=== PATIENT | female | born 2000 | race Caucasian/White ===

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

== ENCOUNTER 2021-02-16 01:47 | Emergency (ER) | payer BC ==
[~2021-02-16] VITALS: Ht 162.6 cm; Wt 50.0 kg
[~2021-02-16 01:47] MED LIST changes: +BUSPAR10 MG PO; +CLEOCIN HCL300 MG PO; +EFFEXOR-XR150 MG PO; +ZYPREXA 5MG5 MG PO
[2021-02-16 01:55] VITALS: BP 118/76; TEMP 98.5
[2021-02-16 02:39] LABS: BASO # 0.1 (0.0-0.2); BASO % 0.7 % (0.0-2.0); EOS # 0.1 (0.0-0.7); EOS % 1.1 % (0-4.0); GRAN # 6.2 (1.4-6.5); GRAN % 64.2 % (42.2-75.2); HEMATOCRIT 44.1 % (35.0-45.0); LYMPH # 2.7 (1.2-3.4); LYMPH % 27.8 % (20.0-51.0); MEAN CELL VOLUME 86 fl (80.0-95.0); MEAN CORPUSCULAR HEMOGLOBIN 27 pg (26.0-32.0); MEAN CORPUSCULAR HGB CONC 32 g/dl (33.0-37.0); MEAN PLATELET VOLUME 9.9 fl (7.4-10.4); MONO # 0.6 (0.1-0.6); MONO % 5.9 % (1.7-9.3); PLATELET COUNT 404 K/mm3 (130-400); RED BLOOD COUNT 5.14 M/mm3 (4.10-5.30); REDCELL DISTRIBUTION WIDTH-CV 13.4 % (11.5-14.5)
[2021-02-16 02:49] LABS: ALANINE AMINOTRANSFERASE 12 U/L (4-34); ALBUMIN 4.7 gm/dL (3.5-5.0); ALCOHOL(ethanol),MEDICAL 186 mg/dL; ALKALINE PHOSPHATASE 46 U/L (50-136); ANION GAP 11 mmol/L (7-16); AST,SGOT 23 U/L (15-37); BILIRUBIN,TOTAL 0.5 mg/dL (0.0-1.0); BLOOD UREA NITROGEN 4 mg/dL (7-17); CARBON DIOXIDE 25 mmol/L (22-30); CHLORIDE 106 mmol/L (98-107); CREATININE, serum 0.78 (0.52-1.25); GLUCOSE 95 mg/dL (74-106); POTASSIUM 4.2 mmol/L (3.4-5.0); SODIUM 143 mmol/L (137-145); TOTAL PROTEIN 8.2 gm/dL (6.4-8.2)
[2021-02-16 02:50] LABS: ACETAMINOPHEN < 10 ug/mL (10-30); SALICYLATE < 1.0 mg/dL
[2021-02-16 06:38] LABS: COLLECTION METHOD CLEAN CATCH
[2021-02-16 06:44] LABS: MUCOUS Present /lpf; PH 6 (5-8); SQUAMOUS EPITHELIAL 0-2 /hpf; URINE APPEARANCE Clear; URINE BACTERIA Rare /hpf; URINE BILIRUBIN Negative (NEGATIVE); URINE BLOOD 3+ (NEGATIVE); URINE COLOR Straw; URINE GLUCOSE Negative (NEGATIVE); URINE KETONE Negative (NEGATIVE); URINE LEUKOCYTE ESTERASE Negative (NEGATIVE); URINE NITRATE Negative (NEGATIVE); URINE PROTEIN(semi-quant) Negative (NEGATIVE); URINE RBC 0-2 /hpf; URINE UROBILINOGEN Negative (NEGATIVE)
[2021-02-16 06:54] LABS: TRICYCLIC ANTIDEPRESS URINE NEGATIVE
[2021-02-16 10:23] VITALS: PULSE 85
== END 2021-02-16 10:23 | disposition home or self-care (01) ==
LOC: COL.ER 01:47
PROVIDERS: Emergency Medicine
DX: R45.851 Suicidal ideations (principal); F10.129 Alcohol abuse with intoxication, unspecified; F17.290 Nicotine dependence, other tobacco product, uncomplicated

== ENCOUNTER 2021-03-25 21:02 | Emergency (ER) | payer BC ==
[~2021-03-25] VITALS: Ht 162.6 cm; Wt 52.3 kg
[2021-03-25 21:11] VITALS: TEMP 97.2
[2021-03-25 21:52] VITALS: BP 109/71; PULSE 80
== END 2021-03-25 21:52 | disposition home or self-care (01) ==
LOC: COL.ER 21:02
DX: K62.89 Other specified diseases of anus and rectum (principal); K64.9 Unspecified hemorrhoids

== ENCOUNTER 2022-02-23 01:09 | Emergency (ER) | payer BC ==
[~2022-02-23] VITALS: Ht 167.6 cm; Wt 59.1 kg
[2022-02-23 01:13] VITALS: TEMP 97.6
[2022-02-23 09:04] VITALS: BP 110/73; PULSE 106
== END 2022-02-23 09:08 | disposition home or self-care (01) ==
LOC: COL.ER 01:09
PROVIDERS: Emergency Medicine
DX: S09.90XA Unspecified injury of head, initial encounter (principal); S00.212A Abrasion of left eyelid and periocular area, initial encounter; F10.129 Alcohol abuse with intoxication, unspecified; Z91.040 Latex allergy status; W18.30XA Fall on same level, unspecified, initial encounter
CPT/HCPCS: J7030